=== PATIENT | female | born 1995 | race Caucasian/White ===

== ENCOUNTER 2017-06-03 22:08 | Emergency (ER) | payer OTHER ==
[2017-06-03] MEDS ORDERED: HYOSCYAMINE SULFATE 0.125 MG TAB PO ONE (22:12)
[2017-06-03] MEDS ORDERED: MAG HYDROX/AL HYDROX/SIMETH 30 ML UDCUP PO ONE (22:12)
[2017-06-03] MEDS ORDERED: LIDOCAINE 2% VISCOUS 15 ML UDCUP PO ONE (22:12)
[2017-06-03] MEDS ORDERED: NS 1,000 ML IV ONE (22:12)
--- NOTE | 2017-06-03 22:15 | EDPHY ---
H & P HPI/ROS: HPI CHIEF COMPLAINT: Epigastric abdominal pain. HISTORY OF PRESENT ILLNESS: This patient very pleasant 21-year-old female, presents to the emergency room with epigastric abdominal pain. Remote history of H pylori. No abdominal surgeries. Denies gallbladder disease. She states that she was at a bank with this evening she just 8 approximately an hour ago right after eating she developed epigastric abdominal pain she describes as sharp stabbing. Nonradiating. He did not good her chest is not go to her back. Did not go to her lower abdomen. She had no vomiting. No diarrhea. Denies any lower abdominal pain. She did receive fentanyl 50 mcg IV in route by EMS and presents emergency room with no pain. She is feeling much better. Past Medical History: No significant medical history except for H pylori Past Surgical History: No abdominal surgeries Social History: [employer] student, denies illicit drugs alcohol tobacco. Family History: Noncontributory ROS REVIEW OF SYSTEMS: A comprehensive 10 point review of systems is otherwise negative aside from elements mentioned in the history of present illness. Exam Constitutional appears well nontoxic triage nursing summary reviewed, vital signs reviewed, awake/alert. Eyes normal conjunctivae and sclera, EOMI, PERRLA. HENT normal inspection, atraumatic, moist mucus membranes, no epistaxis, neck supple/ no meningismus, no raccoon eyes. Respiratory clear to auscultation bilaterally, normal breath sounds, no respiratory distress, no wheezing. Cardiovascular rate normal, regular rhythm, no murmur, no edema, distal pulses normal. Gastrointestinal soft, very mild tender palpation epigastric and right upper quadrant, no rebound, no guarding, normal bowel sounds, no distension, no pulsatile mass. Genitourinary no CVA tenderness. Musculoskeletal no midline vertebral tenderness, full range of motion, no calf swelling, no tenderness of extremities, no meningismus, good pulses, neurovascularly intact. Skin pink, warm, & dry, no rash, skin atraumatic. Neurologic awake, alert and oriented x 3, AAOx3, moves all 4 extremities equally, motor intact, sensory intact, CN II-XII intact, normal cerebellar, normal vision, normal speech. Psychiatric normal mood/affect. Heme/Lymph/Immune no lymphadenopathy. Differential diagnosis includes but is not limited to and in no particular order : Bowel obstruction, appendicitis, gallbladder disease, diverticulitis, colitis , enteritis, perforated viscus, gastritis, GERD, esophagitis, urinary tract infection, pyelonephritis, kidney stones Medical Decision Making: Plan for this patient IV establishment IV fluid bolus , GI cocktail, EKG, upright chest x-ray, ultrasound right upper quadrant abdominal labs including test and urinalysis and re-evaluate. Re-evaluation: ED ultrasound of the abdomen limited for right upper quadrant epigastric pain is negative for acute disease process specifically no cholecystitis or gallstones. This report was called to me by Dr. Poncho Good. EKG interpretation by me on record in [employer] system. Impression time of EKG 2224, this is sinus rhythm rate of 88 I do not appreciate acute ischemic change on this EKG. No ST elevation. No ST depression. No signs of cardiac arrhythmia. Intervals are appropriate. 2334: I did re-evaluate this patient this time she is feeling much better. Abdomen remained soft nontender. I went over her blood work and ultrasound with her. Ultrasound is unremarkable. I do feel that she can go home and she does not need a CT scan of her abdomen pelvis at this time she had reproducible mild epigastric pain that is now resolved. However she does understand that if she develops worsening abdominal pain fever vomiting she needs return to the emergency room. 2354: Patient is feeling much better. P.o. challenge well. No abdominal pain re-examination her abdomen is soft nontender. She has not any vomiting. Return precautions given. She understands return emergency room if she develops worsening abdominal pain fever vomiting. Source: Patient, EMS - Medical/Surgical History Hx Asthma: No Hx Chronic Respiratory Disease: No Hx Diabetes: No Hx Cardiac Disease: No Hx Renal Disease: No Hx Cirrhosis: No Hx Alcoholism: No Hx HIV/AIDS: No Hx Splenectomy or Spleen Trauma: No Other PMH: r hip dislocations/kidney stones - Social History Smoking Status: Never smoked Constitutional: Initial Vital Signs Temperature (C) 37 C 06/03/17 22:15 Heart Rate 92 06/03/17 22:15 Respiratory Rate 16 06/03/17 22:15 Blood Pressure 143/88 H 06/03/17 22:15 O2 Sat (%) 95 06/03/17 22:15 O2 Delivery Mode Room Air Allergies/Adverse Reactions: No Known Allergies Allergy (Unverified 03/25/16 16:37) Home Medications: Medication Instructions Recorded IRON 03/25/16 Control Pills 06/03/17 Medical Decision Making - Diagnostics Imaging Results: Imaging Impressions Abdomen Ultrasound 06/03/17 22:12 Impression: Normal study. Findings were discussed with Ricky Recinos MD at 23:07, on 06/03/2017. Chest X-Ray 06/03/17 22:12 Impression: Normal. - Data Points Laboratory Results: Laboratory Results 06/03/17 22:00 06/03/17 22:00 06/03/17 06/03/17 06/03/17 23:25 22:00 22:00 WBC RBC Hgb Hct MCV MCH MCHC RDW Plt Count MPV Neut % (Auto) Lymph % (Auto) [place] % (Auto) Eos % (Auto) Baso % (Auto) Nucleat RBC Rel Count Absolute Neuts (auto) Absolute Lymphs (auto) Absolute Monos (auto) Absolute Eos (auto) Absolute Basos (auto) Absolute Nucleated RBC Immature Gran % Immature Gran # Sodium 136 mEq/L mEq/L (134-144) Potassium 3.9 mEq/L mEq/L (3.5-5.2) Chloride 102 mEq/L mEq/L (97-110) Carbon Dioxide 19 mEq/l L mEq/l (22-31) Anion Gap 15 mEq/L mEq/L (8-16) BUN 11 mg/dL mg/dL (7-23) Creatinine 0.8 mg/dL mg/dL (0.6-1.0) Estimated GFR > 60 Glucose 82 mg/dL mg/dL (70-100) Calcium 9.8 mg/dL mg/dL (8.5-10.4) Total Bilirubin 0.3 mg/dL mg/dL (0.1-1.4) Conjugated Bilirubin 0.0 mg/dL mg/dL (0.0-0.5) Unconjugated Bilirubin 0.3 mg/dL mg/dL (0.0-1.1) AST 24 IU/L IU/L (14-46) ALT 32 IU/L IU/L (9-52) Alkaline Phosphatase 59 IU/L IU/L (38-126) Total Protein 7.1 g/dL g/dL (6.3-8.2) Albumin 4.6 g/dL g/dL (3.5-5.0) Lipase 148 IU/L IU/L (23-300) Beta HCG, Qual NEGATIVE Urine Color PALE YELLOW Urine Appearance CLEAR Urine pH 6.0 (5.0-7.5) Ur Specific [place] 1.009 (1.002-1.030) Urine Protein NEGATIVE (NEGATIVE) Urine Ketones 1+ H (NEGATIVE) Urine Blood NEGATIVE (NEGATIVE) Urine Nitrate NEGATIVE (NEGATIVE) Urine Bilirubin NEGATIVE (NEGATIVE) Urine Urobilinogen NEGATIVE EU EU (0.2-1.0) Ur Leukocyte Esterase NEGATIVE (NEGATIVE) Urine Glucose NEGATIVE (NEGATIVE) 06/03/17 22:00 WBC 9.20 10^3/uL 10^3/uL (3.80-9.50) RBC 4.52 10^6/uL 10^6/uL (4.18-5.33) Hgb 14.2 g/dL g/dL (12.6-16.3) Hct 40.1 % % (38.0-47.0) MCV 88.7 fL fL (81.5-99.8) MCH 31.4 pg pg (27.9-34.1) MCHC 35.4 g/dL g/dL (32.4-36.7) RDW 11.7 % % (11.5-15.2) Plt Count 239 10^3/uL 10^3/uL (150-400) MPV 9.5 fL fL (8.7-11.7) Neut % (Auto) 67.9 % % (39.3-74.2) Lymph % (Auto) 22.9 % % (15.0-45.0) [place] % (Auto) 7.5 % % (4.5-13.0) Eos % (Auto) 0.8 % % (0.6-7.6) Baso % (Auto) 0.7 % % (0.3-1.7) Nucleat RBC Rel Count 0.0 % % (0.0-0.2) Absolute Neuts (auto) 6.25 10^3/uL 10^3/uL (1.70-6.50) Absolute Lymphs (auto) 2.11 10^3/uL 10^3/uL (1.00-3.00) Absolute Monos (auto) 0.69 10^3/uL 10^3/uL (0.30-0.80) Absolute Eos (auto) 0.07 10^3/uL 10^3/uL (0.03-0.40) Absolute Basos (auto) 0.06 10^3/uL 10^3/uL (0.02-0.10) Absolute Nucleated RBC 0.00 10^3/uL 10^3/uL (0-0.01) Immature Gran % 0.2 % % (0.0-1.1) Immature Gran # 0.02 10^3/uL 10^3/uL (0.00-0.10) Sodium Potassium Chloride Carbon Dioxide Anion Gap BUN Creatinine Estimated GFR Glucose Calcium Total Bilirubin Conjugated Bilirubin Unconjugated Bilirubin AST ALT Alkaline Phosphatase Total Protein Albumin Lipase Beta HCG, Qual Urine Color Urine Appearance Urine pH Ur Specific [place] Urine Protein Urine Ketones Urine Blood Urine Nitrate Urine Bilirubin Urine Urobilinogen Ur Leukocyte Esterase Urine Glucose Medications Given: Discontinued Medications Al Hydroxide/Mg Hydroxide (Maalox Susp) 30 ml PO ONCE ONE Stop: 06/03/17 22:13 Last Admin: 06/03/17 22:23 Dose: 30 ml Hyoscyamine Sulfate (Levsin, Hyomax-Sl) 0.25 mg PO ONCE ONE Stop: 06/03/17 22:13 Last Admin: 06/03/17 22:22 Dose: 0.25 mg Sodium Chloride (Ns) 1,000 mls @ 0 mls/hr IV EDNOW ONE; Wide Open PRN Reason: Protocol Stop: 06/03/17 22:13 Last Admin: 06/03/17 22:23 Dose: 1,000 mls Lidocaine (Lidocaine 2% Viscous) 15 ml PO ONCE ONE Stop: 06/03/17 22:13 Last Admin: 06/03/17 22:23 Dose: 15 ml Departure - Departure Disposition: Home, Routine, Self-Care Clinical Impression: Abdominal pain Qualifiers: Abdominal location: epigastric Qualified Code(s): R10.13 - Epigastric pain Condition: Good Instructions: Acute Abdominal Pain (ED) Additional Instructions: 1.Return emergency room if develops worsening abdominal pain fever vomiting. 2. [place] diet next 24-48 hours no spicy fatty greasy foods. Referrals: Patient,NotPresent [Unknown] - As per Instructions
[2017-06-03 22:18] VITALS: TEMP 98.6
[2017-06-03 22:22] LABS: % IMMATURE GRANULYOCYTES 0.2 % (0.0-1.1); ABSOLUTE IMMATURE GRANULOCYTES 0.02 10^3/uL (0.00-0.10); ADD DIFF? NO; ADD MORPH? NO; ADD SCAN? NO; ATYPICAL LYMPHOCYTE FLAG 10 (0-99); FRAGMENT RBC FLAG 0 (0-99); HEMATOCRIT 40.1 % (38.0-47.0); HEMOGLOBIN 14.2 g/dL (12.6-16.3); LEFT SHIFT FLG 0 (0-99); LIPEMIA HEMOLYSIS FLAG 90 (0-99); MEAN CELL HEMOGLOBIN 31.4 pg (27.9-34.1); MEAN CELL HEMOGLOBIN CONCENTR. 35.4 g/dL (32.4-36.7); MEAN CELL VOLUME 88.7 fL (81.5-99.8); MEAN PLATELET VOLUME 9.5 fL (8.7-11.7); PLATELET CLUMPS FLAG 20 (0-99); PLATELET COUNT 239 10^3/uL (150-400); RED BLOOD CELL COUNT 4.52 10^6/uL (4.18-5.33); RED CELL DISTRIBUTION WIDTH 11.7 % (11.5-15.2)
--- NOTE | 2017-06-03 22:27 | CPEKG ---
Heart Rate: 88 RR Interval: 682 P-R Interval: 172 QRSD Interval: 82 QT Interval: 352 QTC Interval: 426 P [place]: 57 QRS [place]: -13 T Wave [place]: 33 EKG Severity - ABNORMAL ECG - EKG Impression: SINUS RHYTHM EKG Impression: PROBABLE LEFT ATRIAL ABNORMALITY EKG Impression: ABNORMAL Q SUGGESTS ANTERIOR INFARCT Electronically Signed By: Sherif Bernal 04-Jun-2017 08:42:52
[2017-06-03 22:35] LABS: ALANINE AMINOTRANSFERASE 32 IU/L (9-52); ALBUMIN 4.6 g/dL (3.5-5.0); ALKALINE PHOSPHATASE 59 IU/L (38-126); ANION GAP 15 mEq/L (8-16); ASPARTATE AMINOTRANSFERASE 24 IU/L (14-46); BILIRUBIN,TOTAL 0.3 mg/dL (0.1-1.4); BILIRUBIN-UNCONJUGATED 0.3 mg/dL (0.0-1.1); CALCIUM 9.8 mg/dL (8.5-10.4); CARBON DIOXIDE 19 mEq/l (22-31); CHLORIDE 102 mEq/L (97-110); CREATININE 0.8 mg/dL (0.6-1.0); GLOMERULAR FILTRATION RATE > 60; GLUCOSE 82 mg/dL (70-100); POTASSIUM 3.9 mEq/L (3.5-5.2); SODIUM 136 mEq/L (134-144); TOTAL PROTEIN 7.1 g/dL (6.3-8.2)
[2017-06-03 23:46] LABS: COLOR PALE YELLOW; LEUKOCYTE ESTERASE,URINE NEGATIVE (NEGATIVE); NITRITE,URINE NEGATIVE (NEGATIVE)
[2017-06-04] VITALS: BP 128/80; PULSE 76; RESP 18; O2SAT 97
== END 2017-06-04 | disposition home or self-care (01) ==
LOC: EDUNIT#
DX: R10.13 Epigastric pain (principal); E86.9 Volume depletion, unspecified

== ENCOUNTER 2017-12-29 08:51 | Emergency (ER) | payer OTHER ==
--- NOTE | 2017-12-29 09:11 | EDPHY ---
H & P Stated Complaint: ST/ENLAGED TONSILSS/STARTED PCN YESTERDAY VOMITING AND DIARRHEA POST MEDS Time Seen by Provider: 12/29/17 09:10 HPI/ROS: CHIEF COMPLAINT: Sore throat, fever HISTORY OF PRESENT ILLNESS: 22-year-old immunocompetent female experiencing 2 days of sore throat seen at [facility] yesterday (Sunday) diagnosis strep pharyngitis started on Pen-VK arrives via private vehicle complaining of intractable vomiting, vomiting 6-8 times over the hand potter hours as well as continued pharyngitis symptoms. Is complaining of adenopathy, fever. Denies : Abdominal pain, flank her left upper quadrant pain, urinary abnormality, rash , nuchal rigidity, headache, diarrhea. PRIMARY CARE PROVIDER: REVIEW OF SYSTEMS: A ten point review of systems was performed and is negative with the exception of the items mentioned in the HPI PAST MEDICAL & SURGICAL HISTORY: No pertinent medical or surgical history SOCIAL HISTORY:Nonsmoker, student PHYSICAL EXAM (Prior to examination, patient consented to physical exam, hands were washed and my usual and customary physical exam procedures followed) 1) GENERAL: Well-developed, well-nourished, alert and oriented. Appears anxious and uncomfortable 2) HEAD: Normocephalic, atraumatic 3) HEENT: Pupils equal, round, reactive to light bilaterally. Sclera anicteric. Oropharynx: No trismus no drooling. Dry mucous membranes, Bilateral tonsils are symmetrically enlarged with white exudate with no pointing of the uvula. No evidence of peritonsillar abscess, no hot potato voice. Ears bilaterally with normal tympanic membranes. 4) NECK: Full range of motion, no meningeal signs. Positive bilateral submandibular adenopathy, tender. 5) LUNGS: Clear auscultation bilaterally, no wheezes, no rhonchi, no retractions. 6) HEART: Regular rate and rhythm, no murmur, no heave, no gallop. 7) ABDOMEN: No guarding, no rebound, no focal tenderness, negative McBurney's, negative Craig's, negative Rovsing's, negative peritoneal sign, specifically no left upper quadrant pain. No left flank pain. 8) MUSCULOSKELETAL: Moving all extremities, no focal areas of tenderness, no obvious trauma. No peripheral edema or discoloration. 9) BACK: No CVA tenderness, no midline vertebral tenderness, no fluctuance, no step-off, no obvious trauma, no visual or palpable abnormality. 10) SKIN: No rash, no petechiae. 11) Psychiatric: Patient is oriented X 3, there is no agitation. DIFFERENTIAL DIAGNOSIS: In no particular order including but not limited to strep pharyngitis, peritonsillar abscess, retropharyngeal phlegmon, meningitis, mononucleosis, volume depletion - Personal History LMP (Females 10-55): 1-7 Days Ago Current Tetanus/Diphtheria Vaccine: Yes - Medical/Surgical History Hx Asthma: No Hx Chronic Respiratory Disease: No Hx Diabetes: No Hx Cardiac Disease: No Hx Renal Disease: No Hx Cirrhosis: No Hx Alcoholism: No Hx HIV/AIDS: No Hx Splenectomy or Spleen Trauma: No Other PMH: r hip dislocations/kidney stones - Social History Smoking Status: Never smoked Constitutional: Initial Vital Signs Temperature (C) 37.1 C 12/29/17 08:55 Heart Rate 133 H 12/29/17 08:55 Respiratory Rate 18 12/29/17 08:55 Blood Pressure 132/96 H 12/29/17 08:55 O2 Sat (%) 97 12/29/17 08:55 O2 Delivery Mode Room Air Allergies/Adverse Reactions: No Known Allergies Allergy (Unverified 03/25/16 16:37) Home Medications: Medication Instructions Recorded IRON 03/25/16 Control Pills 06/03/17 Ondansetron Odt [Zofran Odt] 4 mg PO Q4PRN PRN #5 tab 12/29/17 Pen Vk 500mg (*) 12/29/17 methylPREDNISolone [Medrol Dose 4 mg PO DAILY #1 ea 12/29/17 Vivek] Medical Decision Making ED Course/Re-evaluation: 9:19 a.m.: Old medical records reviewed. Patient has dry mucous membranes, tachycardic.. Will administer IV hydration, administer IV Decadron, re- evaluate. I saw this patient independently based on established practice protocols. Care of patient under supervision of secondary supervising physician Dr Hogan . 11:49 a.m.: Re-evaluation after IV hydration, Decadron. She is smiling, heart rate in the 90s, states that she is feeling improvement and would like to be discharged home. Recommend she continue her previously prescribed antibiotics, given her Medrol Dosepak, ENT follow-up. Doubt peritonsillar abscess, doubt retropharyngeal phlegmon, doubt meningitis, doubt mononucleosis. Usual and customary pharyngitis precautions and instructions provided. - Data Points Laboratory Results: Laboratory Results 12/29/17 09:30 12/29/17 09:30 12/29/17 12/29/17 12/29/17 09:30 09:30 09:30 WBC 16.44 10^3/uL H 10^3/uL (3.80-9.50) RBC 4.91 10^6/uL 10^6/uL (4.18-5.33) Hgb 15.4 g/dL g/dL (12.6-16.3) Hct 43.7 % % (38.0-47.0) MCV 89.0 fL fL (81.5-99.8) MCH 31.4 pg pg (27.9-34.1) MCHC 35.2 g/dL g/dL (32.4-36.7) RDW 12.5 % % (11.5-15.2) Plt Count 205 10^3/uL 10^3/uL (150-400) MPV 9.2 fL fL (8.7-11.7) Neut % (Auto) 90.6 % H % (39.3-74.2) Lymph % (Auto) 4.4 % L % (15.0-45.0) [place] % (Auto) 4.2 % L % (4.5-13.0) Eos % (Auto) 0.0 % L % (0.6-7.6) Baso % (Auto) 0.3 % % (0.3-1.7) Nucleat RBC Rel Count 0.0 % % (0.0-0.2) Absolute Neuts (auto) 14.89 10^3/uL H 10^3/uL (1.70-6.50) Absolute Lymphs (auto) 0.73 10^3/uL L 10^3/uL (1.00-3.00) Absolute Monos (auto) 0.69 10^3/uL 10^3/uL (0.30-0.80) Absolute Eos (auto) 0.00 10^3/uL L 10^3/uL (0.03-0.40) Absolute Basos (auto) 0.05 10^3/uL 10^3/uL (0.02-0.10) Absolute Nucleated RBC 0.00 10^3/uL 10^3/uL (0-0.01) Immature Gran % 0.5 % % (0.0-1.1) Immature Gran # 0.08 10^3/uL 10^3/uL (0.00-0.10) Sodium 137 mEq/L mEq/L (135-145) Potassium 4.1 mEq/L mEq/L (3.3-5.0) Chloride 99 mEq/L mEq/L (97-110) Carbon Dioxide 17 mEq/l L mEq/l (22-31) Anion Gap 21 mEq/L H mEq/L (8-16) BUN 10 mg/dL mg/dL (7-23) Creatinine 0.8 mg/dL mg/dL (0.6-1.0) Estimated GFR > 60 Glucose 93 mg/dL mg/dL (70-100) Calcium 9.3 mg/dL mg/dL (8.5-10.4) Beta HCG, Qual NEGATIVE Monos[place] NEGATIVE (NEGATIVE) Medications Given: Discontinued Medications Dexamethasone (Decadron Injection) 10 mg IVP EDNOW ONE Stop: 12/29/17 09:17 Last Admin: 12/29/17 09:32 Dose: 10 mg Sodium Chloride (Ns) 2,000 mls @ 0 mls/hr IV ONCE ONE PRN Reason: Wide Open Stop: 12/29/17 09:17 Last Admin: 12/29/17 09:32 Dose: 2,000 mls Sodium Chloride (Ns) 1,000 mls @ 0 mls/hr IV ONCE ONE PRN Reason: Wide Open Stop: 12/29/17 10:36 Last Admin: 12/29/17 10:51 Dose: 1,000 mls Ketorolac Tromethamine (Toradol) 15 mg IVP EDNOW ONE Stop: 12/29/17 10:06 Last Admin: 12/29/17 10:14 Dose: 15 mg Ondansetron HCl (Zofran) 4 mg IVP EDNOW ONE Stop: 12/29/17 09:36 Last Admin: 12/29/17 09:50 Dose: 4 mg Departure - Departure Disposition: Home, Routine, Self-Care Clinical Impression: Volume depletion, Strep pharyngitis Condition: Good Instructions: Strep Throat (ED) Additional Instructions: Return to the ER immediately if you cannot swallow, have drooling, fevers, neck stiffness, cannot open your jaw, or any other symptoms that concern you. Referrals: Isac Ramires MD [Medical Doctor] - 2-3 days, call for appt. Stand Alone Forms: School Excuse, Work Excuse Prescriptions: methylPREDNISolone [Medrol Dose Vivek] 4 mg PO DAILY #1 ea Ondansetron Odt [Zofran Odt] 4 mg PO Q4PRN PRN #5 tab PRN Reason: Nausea
[2017-12-29] MEDS ORDERED: DEXAMETHASONE 10 MG/ML VIAL IVP ONE (09:16)
[2017-12-29] MEDS ORDERED: NS 2,000 ML IV ONE (09:16)
[2017-12-29] MEDS ORDERED: ONDANSETRON 4 MG/2 ML VIAL IVP ONE (09:35)
[2017-12-29 09:39] LABS: PLATELET COUNT 205 10^3/uL (150-400)
[2017-12-29] MEDS ORDERED: KETOROLAC 15 MG/1 ML SDV IVP ONE (10:05)
[2017-12-29] MEDS ORDERED: NS 1,000 ML IV ONE (10:35)
[2017-12-29 12:02] VITALS: BP 128/89
== END 2017-12-29 12:01 | disposition home or self-care (01) ==
DX: J02.0 Streptococcal pharyngitis (principal); E86.9 Volume depletion, unspecified
CPT/HCPCS: 96374; J1100; J1885; J2405

== ENCOUNTER 2018-05-25 08:22 | Emergency (ER) | payer OTHER ==
[2018-05-25] MEDS ORDERED: IBUPROFEN 600 MG TAB PO ONE (09:10)
--- NOTE | 2018-05-25 09:18 | EDPHY ---
General Time Seen by Provider: 05/25/18 09:02 Narrative: CHIEF COMPLAINT: Sore throat, body aches HISTORY OF PRESENT ILLNESS: Patient presents by vehicle with complaints of sore throat, body aches, myalgias , joint pain, fever, malaise. Symptoms started abruptly 3 days ago. They have been constant duration. Rated as moderate to severe. Worse with any kind of movement. She has been nauseated but not vomiting. No chest pain. Dry cough. No abdominal pain or urinary complaints. She has no rash. No neck pain or stiffness. No recent travel or known sick contacts. She has been drinking and eating less because of her pain. She has no history of immune deficiency. She does not take any steroids. No other associated complaints or modifying factors. REVIEW OF SYSTEMS: 10 systems were reviewed and negative with the exception of the elements mentioned in the history of present illness. PCP: None locally. SPECIALISTS: None PAST MEDICAL HISTORY: Denies PAST SURGICAL HISTORY: Denies SOCIAL HISTORY: Nonsmoker. [employer] student. Originally from [place]. Works locally at [employer] FAMILY HISTORY: Noncontributory EXAMINATION: General Appearance: Alert, no distress. Coryza and viral appearance. Conversing in full sentences without a muffled voice. Head: normocephalic, atraumatic Eyes: Pupils equal and round, no conjunctival pallor or injection. EOM symmetric. ENT, Mouth: Mucous membranes slightly dry. Uvula is midline. There is symmetric peritonsillar enlargement with moderate exudate. There is no asymmetry of the posterior pharynx. No deviation of the uvula. No trismus. No drooling. No muffled voice. Her airway is widely patent. Neck: Normal inspection, supple, tender anterior cervical lymphadenopathy. No midline tenderness. No crepitus. No meningismus. Respiratory: Lungs are clear to auscultation Cardiovascular: Mildly tachycardic rate. Regular rhythm. No murmur. Gastrointestinal: Abdomen is soft and nontender. I do not appreciate organomegaly. No palpable masses. Back: non-tender, no bony abnormalities Neurological: A&O, nonfocal, normal gait Skin: Warm and dry, no rash no petechiae or purpura Extremities: Nontender, no pedal edema Psychiatric: Mood and affect normal DIFFERENTIAL DIAGNOSES: Including but not limited to strep pharyngitis, viral pharyngitis, rhino sinusitis, infectious mononucleosis, peritonsillar abscess, Rock's angina, retropharyngeal abscess MDM: 9:05 a.m. Acute pharyngitis with body aches, joint pain, fever, rhino sinusitis and generalized malaise. Strep test was performed prior to my examining the patient and is initially negative. Follow-up test will be performed. She is mildly tachycardic. She is in no acute distress. No trismus. No evidence of peritonsillar abscess. Given her discomfort and decreased fluid intake, I have ordered IV placement. I have also check her for mono, influenza. She is in no acute distress. She is comfortable this plan. 10:20 a.m. Electrolytes and renal function within normal limits. Strep test negative. [place] test negative. 10:35 a.m. Influenza test is negative. Patient re-evaluated. She is feeling significantly better after IV fluid and Decadron. She states that she would like to go home. We discussed the possibility of a false negative rapid strep test and I have elected to treat her with antibiotics orally. We discuss 1 further dose of Decadron tomorrow. We discussed 5 days therapy Zithromax. We discuss ibuprofen 600 mg every 6-8 hours. We discussed increase fluid intake. We discussed returning here for any headache, neck pain or stiffness, persistent fever, intractable pain. We discussed follow up with primary care physician. I have answered all his questions. Discharged home stable condition. SUPERVISION: This patient was independently evaluated without direct involvement of or examination by the attending physician. CONSULTATION: None - History Smoking Status: Never smoked - Objective Vital Signs: Initial Vital Signs Temperature (C) 99.0 F 05/25/18 08:28 Heart Rate 115 H 05/25/18 08:28 Respiratory Rate 20 05/25/18 08:28 Blood Pressure 113/74 05/25/18 08:28 O2 Sat (%) 97 05/25/18 08:28 O2 Delivery Mode Room Air Allergies/Adverse Reactions: No Known Allergies Allergy (Verified 05/25/18 08:27) Home Medications: Medication Instructions Recorded Control Pills 06/03/17 Azithromycin [Zithromax] 500 mg PO DAILY #5 tablet 05/25/18 Dexamethasone [Decadron 4 MG (*)] 8 mg PO ONCE #2 tab 05/25/18 Laboratory Results: 05/25/18 05/25/18 05/25/18 Unknown 09:45 09:44 POC Hgb 13.9 gm/dL gm/dL (12.6-16.3) POC Hct 41 % % (38-47) POC Sodium 137 mEq/L mEq/L (135-145) POC Potassium 3.7 mEq/L mEq/L (3.3-5.0) POC Chloride 104 mEq/L mEq/L (97-110) POC BUN 9 mg/dL mg/dL (7-23) POC Creatinine 0.7 mg/dL mg/dL (0.6-1.0) POC Glucose 98 mg/dL mg/dL (70-100) Nasal Influenza A PCR NEGATIVE FOR FLU A (NEGATIVE) Nasal Influenza B PCR NEGATIVE FOR FLU B (NEGATIVE) Monoscreen Group A Strep Screen Group A Strep DNA NEGATIVE (NEGATIVE) 05/25/18 05/25/18 09:35 08:30 POC Hgb POC Hct POC Sodium POC Potassium POC Chloride POC BUN POC Creatinine POC Glucose Nasal Influenza A PCR Nasal Influenza B PCR Monoscreen NEGATIVE (NEGATIVE) Group A Strep Screen NEGATIVE (NEGATIVE) Group A Strep DNA Medications Given: Discontinued Medications Dexamethasone (Decadron Injection) 10 mg IVP EDNOW ONE Stop: 05/25/18 09:20 Last Admin: 05/25/18 09:39 Dose: 10 mg Sodium Chloride (Ns) 1,000 mls @ 0 mls/hr IV EDNOW ONE; Wide Open PRN Reason: Protocol Stop: 05/25/18 09:20 Last Admin: 05/25/18 09:36 Dose: 1,000 mls Ibuprofen (Motrin) 600 mg PO EDNOW ONE Stop: 05/25/18 09:11 Last Admin: 05/25/18 09:12 Dose: 600 mg Ketorolac Tromethamine (Toradol) 15 mg IVP EDNOW ONE Stop: 05/25/18 09:20 Last Admin: 05/25/18 09:39 Dose: Not Given Point of Care Test Results: Chemistry 05/25/18 09:44 POC Sodium 137 mEq/L mEq/L (135-145) POC Potassium 3.7 mEq/L mEq/L (3.3-5.0) POC Chloride 104 mEq/L mEq/L (97-110) POC BUN 9 mg/dL mg/dL (7-23) POC Creatinine 0.7 mg/dL mg/dL (0.6-1.0) POC Glucose 98 mg/dL mg/dL (70-100) ISTAT H&H 05/25/18 09:44 POC Hgb 13.9 gm/dL gm/dL (12.6-16.3) POC Hct 41 % % (38-47) Departure - Departure Disposition: Home, Routine, Self-Care Clinical Impression: Acute pharyngitis Qualifiers: Pharyngitis/tonsillitis etiology: streptococcus Qualified Code(s): J02.0 - Streptococcal pharyngitis Condition: Good Instructions: Pharyngitis (ED), Strep Throat (ED) Additional Instructions: 1. Antibiotics as prescribed to completion 2. Increase fluid intake the next few days 3. Mucinex [id number] as directed on the bottle as needed 4. The dextromethorphan [id number] as directed on the bottle as needed for cough 5. Ibuprofen 600 mg every 6-8 hours as needed for discomfort 6. ED precautions for any headache, neck pain or stiffness, persistent fever, chest pain, asymmetrical pain of the throat, difficulty breathing or swallowing Referrals: [facility],. [Clinic] - As per Instructions Bea Fernandez MD [Medical Doctor] - As per Instructions Stand Alone Forms: Work Excuse Prescriptions: Azithromycin [Zithromax] 500 mg PO DAILY #5 tablet Dexamethasone [Decadron 4 MG (*)] 8 mg PO ONCE #2 tab
[2018-05-25] MEDS ORDERED: NS 1,000 ML IV ONE (09:19)
[2018-05-25] MEDS ORDERED: DEXAMETHASONE 10 MG/ML VIAL IVP ONE (09:19)
[2018-05-25] MEDS ORDERED: KETOROLAC 15 MG/1 ML SDV IVP ONE (09:19)
[2018-05-25] MEDS ORDERED: DEXAMETHASONE 4 MG/ML VIAL ONE (09:36)
[2018-05-25 10:57] VITALS: BP 113/73
== END 2018-05-25 10:57 | disposition home or self-care (01) ==
DX: J02.9 Acute pharyngitis, unspecified (principal); E86.9 Volume depletion, unspecified
CPT/HCPCS: 82435-PO; 82565-PO; 82947-PO; 84132-PO; 84295-PO; 84520-PO; 85014-PO; 96374; J1100